=== PATIENT | male | born 1970 | race Caucasian/White ===

== ENCOUNTER 2025-08-12 00:30 | Emergency (ER) | payer SELFPAY ==
[~2025-08-12] VITALS: Ht 177.8 cm; Wt 105.3 kg
[2025-08-12 01:00] LABS: BASOPHILS 0.4 % (0.2-1.2); EOSINOPHILS 1.3 % (0.8-7.0); LYMPHOCYTES 25.8 % (21.8-53.1); MCH 30.5 PG (25.7-32.2); MCHC 33.6 g/dL (32.3-36.5); MCV 90.6 fL (79.0-92.2); MONOCYTES 10.2 % (5.3-12.2); NEUTROPHILS 62.1 % (34.0-67.9); RBC 4.99 M/uL (4.63-6.08)
[2025-08-12] MEDS ORDERED: FAMOTIDINE 20 MG/ 2 ML VIAL IV ONE (01:00)
[2025-08-12] MEDS ORDERED: MORPHINE SULFATE 4 MG/ML VIAL IV ONE (01:00)
[2025-08-12 01:32] LABS: ALT (SGPT) 27.0 U/L (14-59); AST (SGOT) 17.0 U/L (15-37); GLOMERULAR FILTRATION RATE,EST 85.0 mL/min (>60); PROTEIN, TOTAL 6.9 g/dL (6.4-8.2); UREA NITROGEN 13.0 mg/dL (7-18)
[2025-08-12 01:54] LABS: BLOOD/HGB, URINE NEGATIVE (Negative); KETONE, URINE NEGATIVE (Negative); LEUK ESTERASE, URINE NEGATIVE (negative); NITRITE, URINE NEGATIVE (negative)
[2025-08-12] MEDS ORDERED: KETOROLAC TROMETHAMINE 30 MG/ML VIAL IV ONE (02:15)
[2025-08-12 02:53] VITALS: BP 132/75
== END 2025-08-12 02:55 | disposition home or self-care (01) ==
LOC: ED 00:30
PROVIDERS: Internal Medicine
DX: S39.011A Strain of muscle, fascia and tendon of abdomen, initial encounter (principal); X58.XXXA Exposure to other specified factors, initial encounter; F43.10 Post-traumatic stress disorder, unspecified; E78.5 Hyperlipidemia, unspecified
CPT/HCPCS: 36415; 74177; 80053; 81003; 83690; 85025; 96374; 96375; 99284-25; J1885; J2270; J2405; Q9967